=== PATIENT | male | born 1980 | race Caucasian/White ===

== ENCOUNTER 2023-07-13 06:10 | Day surgery (SDC) | payer BC ==
[2023-07-13] MEDS ORDERED: Nozin Nasal Sanitizer NASBOTH ONE (06:15)
[2023-07-13 06:38] LABS: HEMATOCRIT 42.9 % (38.4-49.7); HEMOGLOBIN 14.8 g/dL (12.9-16.9); MEAN CORPUSCULAR HEMOGLOBIN 29.5 pg (31.6-35.5); MEAN CORPUSCULAR HGB CONC 34.5 g/dL (31.6-35.5); MEAN CORPUSCULAR VOLUME 85.6 fL (81.4-99.0); RED BLOOD CELL COUNT 5.01 M/uL (4.14-5.76)
[2023-07-13] MEDS ORDERED: Bupivacaine 0.5% 30 ML SDV ONE (06:51)
[2023-07-13] MEDS ORDERED: Lidocaine 0.5% 50 ML SDV ONE (07:07)
[2023-07-13] MEDS ORDERED: fentaNYL 100 MCG/2 ML SDV ONE (07:07)
[2023-07-13] MEDS ORDERED: Propofol 200 MG/20 ML SDV ONE (07:07)
[2023-07-13] MEDS ORDERED: Midazolam 1 MG/ML 2 ML SDV ONE (07:08)
[2023-07-13] MEDS ORDERED: Lactated Ringers 1,000 ML IV SCH (07:15)
[2023-07-13] MEDS ORDERED: ceFAZolin 1 GM in Premix Bag 1 BAG IV ONE (07:30)
[2023-07-13 08:10] LABS: ANION GAP 11.4 mmol/L (5.0-14.0); CALCIUM 8.5 mg/dL (8.5-10.1); CREATININE 1.2 mg/dL (0.8-1.3); EST CRCL DRUG DOSING (CG) 79.37 mL/min; POTASSIUM,K 3.4 mmol/L (3.6-5.2)
[2023-07-13 09:51] VITALS: BP 116/80; PULSE 65
== END 2023-07-13 10:11 | disposition home or self-care (01) ==
LOC: JP.SDS 06:10
PROVIDERS: ATTEND Specialist
DX: G56.01 Carpal tunnel syndrome, right upper limb (principal); K21.9 Gastro-esophageal reflux disease without esophagitis; Z79.899 Other long term (current) drug therapy; Z88.8 Allergy status to other drugs, medicaments and biological substances
CPT/HCPCS: 36415; 80048; 85027; A9270-GY; J0665; J0690; J2250; J2704; J3010; J7120

== ENCOUNTER 2023-08-24 05:48 | Day surgery (SDC) | payer BC ==
[2023-08-24 06:12] LABS: HEMATOCRIT 44.2 % (38.4-49.7); HEMOGLOBIN 15.4 g/dL (12.9-16.9); MEAN CORPUSCULAR HEMOGLOBIN 29.7 pg (31.6-35.5); MEAN CORPUSCULAR HGB CONC 34.8 g/dL (31.6-35.5); MEAN CORPUSCULAR VOLUME 85.2 fL (81.4-99.0); RED BLOOD CELL COUNT 5.19 M/uL (4.14-5.76); WHITE BLOOD CELL COUNT,WBC 8.8 K/uL (3.2-11.0)
[2023-08-24] MEDS: Lactated Ringers 1,000 ML IV SCH (06:33)
[2023-08-24] MEDS: Nozin Nasal Sanitizer NASBOTH ONE (06:36)
[2023-08-24] MEDS ORDERED: Propofol 200 MG/20 ML SDV ONE (07:16)
[2023-08-24] MEDS ORDERED: Midazolam 1 MG/ML 2 ML SDV ONE (07:16)
[2023-08-24] MEDS ORDERED: Lidocaine 0.5% 50 ML SDV ONE (07:16)
[2023-08-24] MEDS ORDERED: fentaNYL 100 MCG/2 ML SDV ONE (07:16)
[2023-08-24] MEDS: ceFAZolin 1 GM in Premix Bag 1 BAG IV ONE (08:26)
[2023-08-24] MEDS: Bupivacaine 0.5% 30 ML SDV ONE (08:30)
[2023-08-24 09:52] VITALS: BP 113/67; PULSE 74
== END 2023-08-24 10:01 | disposition home or self-care (01) ==
LOC: JP.SDS 05:48
PROVIDERS: ATTEND Specialist
DX: G56.02 Carpal tunnel syndrome, left upper limb (principal); K21.9 Gastro-esophageal reflux disease without esophagitis
CPT/HCPCS: 36415; 64721; 85027; A9270; J0665; J0690; J2250; J2704; J3010; J7120